=== PATIENT | male | born 1990 | race Caucasian/White ===

== ENCOUNTER 2021-05-27 11:59 | Emergency (ER) | payer OTHER, BC ==
[2021-05-27 12:17] VITALS: BP 151/71
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
--- NOTE | 2021-05-27 13:07 | XRAY Report ---
PROCEDURE: Hip w/Pelvis 2-3V LT INDICATIONS: hip inj TECHNIQUE: AP pelvis with lateral view(s) of the left hip(s). COMPARISON: None. FINDINGS: Bones: No fractures or dislocations. Pelvic ring appears intact. No suspicious bony lesions. Soft tissues: The visualized bowel gas pattern is normal. No suspicious soft tissue calcifications. IMPRESSION: Intact left hip. Reviewed by: Bette Clancy MD on 05/27/2021 1:06 PM PST Approved by: Bette Clancy MD on 05/27/2021 1:06 PM PST Station ID: [id number]
== END 2021-05-27 13:06 | disposition home or self-care (01) ==
LOC: ED 11:59
DX: S70.02XA Contusion of left hip, initial encounter (principal); W17.89XA Other fall from one level to another, initial encounter; Y99.0 Civilian activity done for income or pay
CPT/HCPCS: 1040M; 73502; 99282; 99283

== ENCOUNTER 2022-03-24 11:05 | Outpatient (CLI) | payer BC | END 2022-03-24 11:06 | disposition EMS.NT | LOC: EMS 11:05 | DX: T23.251A Burn of second degree of right palm, initial encounter (principal); T23.231A Burn of second degree of multiple right fingers (nail), not including thumb, initial encounter; X08.8XXA Exposure to other specified smoke, fire and flames, initial encounter; Y92.414 Local residential or business street as the place of occurrence of the external cause ==

== ENCOUNTER 2022-03-24 12:19 | Emergency (ER) | payer OTHER, BC ==
[2022-03-24] MEDS ORDERED: TETANUS/DIPHTHERIA/PERTUSSIS 0.5 ML SYRINGE IM ONE (12:40)
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
[2022-03-24 14:37] VITALS: BP 109/66
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
== END 2022-03-24 14:57 | disposition home or self-care (01) ==
LOC: ED 12:19
DX: T23.231A Burn of second degree of multiple right fingers (nail), not including thumb, initial encounter (principal); Z03.89 Encounter for observation for other suspected diseases and conditions ruled out; V68.5XXA Driver of heavy transport vehicle injured in noncollision transport accident in traffic accident, initial encounter; Y93.89 Activity, other specified; Y99.0 Civilian activity done for income or pay; F17.200 Nicotine dependence, unspecified, uncomplicated
CPT/HCPCS: 1040M; 71045; 90471; 90715; 99282; 99283